=== PATIENT | male | born 1965 | race African-American/Black ===

== ENCOUNTER 2022-09-14 22:39 | Emergency (ER) | payer BC ==
[~2022-09-14] VITALS: Ht 182.9 cm; Wt 117.9 kg
[2022-09-14] MEDS ORDERED: DOXYCYCLINE HY100 MG PO (23:31)
== END 2022-09-14 23:30 | disposition home or self-care (01) ==
LOC: FSED 22:51
DX: L03.116 Cellulitis of left lower limb (principal); E11.65 Type 2 diabetes mellitus with hyperglycemia
CPT/HCPCS: 80053; 85025; 99283